=== PATIENT | female | born 1970 | race Caucasian/White ===

== ENCOUNTER 2017-09-10 22:00 | Emergency (ER) | payer BC ==
[~2017-09-10] VITALS: Ht 157.5 cm; Wt 143.2 kg
[~2017-09-10 22:00] MED LIST: ALEVE220 M1 PO; ALL DAY ALLERGY10 M1 PO; ALL DAY ALLG10 MG PO; AMITRIPTYLIN25 MG PO; AMOXICILLIN/CL500 MG PO; AMOXIL400 MG/52 PO; BACTRIM DS1 TAB PO; BISACODYL5 M1 PO; CEPHALEXIN500 MG PO; CIPROFLOXACN500 MG PO; CLONIDINE0.1 MG PO; CYCLOBENZAPR10 MG PO; CYMBALTA30 MG PO; CYMBALTA60 MG PO; DICLOFENAC PO; DICLOFENAC SODI75 M1 PO; DICLOFENAC75 MG PO; DIFFERIN0.1 %; DILAUDID 2MG2 MG/TA1 PO; DILAUDID4 MG PO; FIORICET PO; HYCOTUSS EXP1 ML OR; HYDROCHLORO25 MG/TAB PO; HYDROMORPHONE HC4 MG PO; IMITREX25 MG PO; KETOROLAC60 MG/2 ML IJ; KETOROLAC60 MG/2 ML IM; LISINOP/HCTZ1 TA2 PO; LISINOPRIL20 MG PO; MELOXICAM15 MG PO; MULTI VIT PO; NAPROSYN500 MG PO; NITROFURANTN100 MG PO; NORTREL PO; PHENERGAN SUP12.5 MG RE; PHENERGAN12.5 MG/TA PO; PROAIR HFA IN; PROZAC10 MG PO; PROZAC20 MG PO; ROPINIROLE0.5 MG PO; ROPINIROLE2 MG PO; TIZANIDINE4 MG PO; TOPAMAX25 MG PO; TOPAMAX50 M1 PO; TRAZODONE HCL100 MG PO; TRAZODONE50 MG PO; TRIAMCINOLON0.11 EX; ZANTAC 75 PO; ZPAK OR
[2017-09-11 00:07] LABS: HEMATOCRIT 40.4 % (37.0-47.0); HEMOGLOBIN 12.8 g/dl (12.0-16.0); IMMATURE GRANULOCYTES 0.3 % (0.0-1.0); MEAN CELL VOLUME 85.4 fL CALC (80.0-100.0); MEAN CORPUSCULAR HGB 27.1 pG CALC (26.0-32.0); MEAN CORPUSCULAR HGB CONC 31.7 g/L CALC (32.0-36.0); NEUT# 7.48 thou/uL (2.00-7.15); RED BLOOD COUNT 4.73 mill/uL (4.20-5.60); RED CELL DISTRI WIDTH 15.3 % (11.5-15.5)
[2017-09-11 00:34] LABS: ALBUMIN 4.5 g/dL (3.2-5.0); ALKALINE PHOSPHATASE 81 u/l (38-126); ANION GAP 21 (6-22 (CALC)); BILIRUBIN, TOTAL 0.3 mg/dL (0.0-1.4); BUN 13 mg/dL (7-17); BUN/CREATININE RATIO 22 (12-20 (CALC)); CARBON DIOXIDE 19 mmol/l (22-30); CHLORIDE 107 mmol/l (95-108); CREATININE 0.6 mg/dL (0.5-1.0); GFR > 60 ML/MIN (>=60 (CALC)); GFR FOR AFR.AMER. > 60 ML/MIN (>=60 (CALC)); POTASSIUM 4.8 mmol/l (3.5-5.1); SGOT/AST 19 u/l (14-36); SGPT/ALT 17 u/l (9-52); SODIUM 142 mmol/l (137-146); TOTAL PROTEIN 7.4 g/dL (6.3-8.2)
[2017-09-11 00:54] VITALS: BP 146/110
== END 2017-09-11 01:07 | disposition home or self-care (01) ==
LOC: ED 22:00
PROVIDERS: Emergency Medicine
DX: N94.6 Dysmenorrhea, unspecified (principal)

== ENCOUNTER 2019-01-13 06:13 | Day surgery (SDC) | payer BC ==
[2019-01-13] MEDS ORDERED: CARVEDILOL3.125 MG PO (06:50)
[2019-01-13] MEDS ORDERED: HYDROCHLOROT25 MG PO (06:50)
[2019-01-13] MEDS ORDERED: LOSARTAN POT25 MG PO (06:51)
[2019-01-13] MEDS ORDERED: GLIPIZIDE5 MG PO (06:52)
[2019-01-13] MEDS ORDERED: MEGESTROL AC20 MG PO (06:52)
[2019-01-13] MEDS ORDERED: ASPIRIN81 MG PO (06:53)
[2019-01-13] MEDS ORDERED: LIPITOR10 M1 PO (06:53)
[2019-01-13] MEDS ORDERED: OZEMPIC2 MG/1.5 M (06:54)
[2019-01-13 08:17] VITALS: BP 115/63
== END 2019-01-13 08:54 | disposition home or self-care (01) | DRG 552 ==
LOC: ORM 06:13
PROVIDERS: ATTEND Anesthesiology Pain Medicine
PROC: 3E0T3BZ Introduction of Anesthetic Agent into Peripheral Nerves and Plexi, Percutaneous Approach (ICD-10-PCS; principal; 2019-01-13)
PROC: 3E0T33Z Introduction of Anti-inflammatory into Peripheral Nerves and Plexi, Percutaneous Approach (ICD-10-PCS; 2019-01-13)
PROC: 3E0T3BZ Introduction of Anesthetic Agent into Peripheral Nerves and Plexi, Percutaneous Approach (ICD-10-PCS; 2019-01-13)
PROC: 3E0T33Z Introduction of Anti-inflammatory into Peripheral Nerves and Plexi, Percutaneous Approach (ICD-10-PCS; 2019-01-13)
PROC: 3E0T3BZ Introduction of Anesthetic Agent into Peripheral Nerves and Plexi, Percutaneous Approach (ICD-10-PCS; 2019-01-13)
PROC: 3E0T33Z Introduction of Anti-inflammatory into Peripheral Nerves and Plexi, Percutaneous Approach (ICD-10-PCS; 2019-01-13)
DX: M54.5 Low back pain (principal); M46.96 Unspecified inflammatory spondylopathy, lumbar region

== ENCOUNTER 2019-02-17 08:16 | Day surgery (SDC) | payer BC ==
[~2019-02-17] VITALS: Ht 157.5 cm; Wt 127.0 kg
[~2019-02-17 08:16] MED LIST changes: +ASPIRIN81 MG PO; +CARVEDILOL3.125 MG PO; +GLIPIZIDE5 MG PO; +HYDROCHLOROT25 MG PO; +LIPITOR10 M1 PO; +LOSARTAN POT25 MG PO; +MEGESTROL AC20 MG PO; +OZEMPIC2 MG/1.5 M
[2019-02-17 10:38] VITALS: BP 119/75
== END 2019-02-17 11:10 | disposition home or self-care (01) | DRG 552 ==
LOC: ORM 08:16
PROVIDERS: ATTEND Anesthesiology Pain Medicine
PROC: 015B3ZZ Destruction of Lumbar Nerve, Percutaneous Approach (ICD-10-PCS; principal; 2019-02-17)
DX: M54.5 Low back pain (principal)

== ENCOUNTER 2019-12-22 | Day surgery (SDC) | payer BC ==
[~2019-12-22] MED LIST changes: +MEDDOSEPAK PO; -OZEMPIC2 MG/1.5 M; +OZEMPIC2 MG/1.5 M SC; +SINGULAIR10 MG PO
[2020-01-04] MEDS ORDERED: MEDDOSEPAK PO (12:51)
== END 2019-12-22 10:22 | disposition home or self-care (01) | DRG 552 ==
DX: M54.5 Low back pain (principal); M46.1 Sacroiliitis, not elsewhere classified

== ENCOUNTER 2020-09-13 08:02 | Day surgery (SDC) | payer BC ==
[~2020-09-13 08:02] MED LIST changes: +JARDIANCE10 MG PO; +LEVOTHYROXIN75 MC1 PO
[2020-09-13] MEDS ORDERED: CRESTOR20 MG PO (08:59)
[2020-09-13] MEDS ORDERED: OXYBUTININ PO (09:00)
[2020-09-13 12:18] VITALS: BP 110/57
== END 2020-09-13 12:10 | disposition home or self-care (01) | DRG 552 ==
LOC: ORM 08:02
PROVIDERS: ATTEND Anesthesiology Pain Medicine
DX: M54.5 Low back pain (principal); M46.1 Sacroiliitis, not elsewhere classified; Z01.84 Encounter for antibody response examination

== ENCOUNTER 2021-04-12 12:38 | Inpatient (IN) | payer BC ==
[~2021-04-12] VITALS: Ht 157.5 cm; Wt 128.3 kg
[~2021-04-12 12:38] MED LIST changes: +CRESTOR20 MG PO; +DULOXETINE HCL30 MG PO; +OXYBUTYNIN CHLO10 MG PO
--- NOTE | 2021-04-12 12:44 | NUR ---
PATIENT SPO2 97% ON ROOM AIR RR 22. PATIENT AWARE OF BUSY ED AND IS AWAITING ROOM ASSIGNMENT.
--- NOTE | 2021-04-12 13:33 | NUR ---
PT AMBULATED TO RM 9 WITH STEADY GAIT.
[2021-04-12 15:15] LABS: HEMATOCRIT 38.9 % (37.0-47.0); HEMOGLOBIN 12.8 g/dl (12.0-16.0); IMMATURE GRANULOCYTES 0.2 % (0.0-5.0); MEAN CORPUSCULAR HGB 30.5 pG CALC (26.0-32.0); MEAN CORPUSCULAR HGB CONC 32.9 g/dL CAL (32.0-36.0); NEUT# 3.72 thou/uL (2.00-7.15); RED BLOOD COUNT 4.2 mill/uL (4.20-5.60)
[2021-04-12 15:34] LABS: ALBUMIN 3.9 g/dL (3.2-5.0); ALKALINE PHOSPHATASE 75 u/l (38-126); ANION GAP 17 (6-22 (CALC)); BILIRUBIN, TOTAL 0.3 mg/dL (0.0-1.4); BUN 13 mg/dL (7-17); BUN/CREATININE RATIO 17 (12-20 (CALC)); CARBON DIOXIDE 18 mmol/l (22-30); CHLORIDE 105 mmol/l (95-108); CREATININE 0.8 mg/dL (0.5-1.0); GFR > 60 ML/MIN (>=60 (CALC)); GFR FOR AFR.AMER. > 60 ML/MIN (>=60 (CALC)); SODIUM 137 mmol/l (137-146); TOTAL PROTEIN 6.9 g/dL (6.3-8.2)
[2021-04-12 15:35] LABS: MEAN CELL VOLUME 92.6 fL CALC (80.0-100.0)
--- NOTE | 2021-04-12 15:40 | NUR ---
Reassessment of patient completed. No distress noted.
[2021-04-12 15:41] LABS: SGOT/AST 79 u/l (14-36)
--- NOTE | 2021-04-12 17:00 | NUR ---
WALKING OXIMETRY TEST PERFORMED, PT AMBULATED IN PLACE WITH CANE AND ASSIST OF 1, O2 SATS DECREASED TO 75%. NOTIFIED
--- NOTE | 2021-04-12 22:02 | NUR ---
Reassessment of patient completed. No distress noted.
--- NOTE | 2021-04-13 00:15 | NUR ---
NOTED DECREASED SAO2 AND INCREASED RR. INCREASED O2 TO 6 LITERS.
--- NOTE | 2021-04-13 04:17 | NUR ---
RESTING QUIETLY. NAD.
--- NOTE | 2021-04-13 05:07 | NUR ---
SAO2 DROPS SIGNIFICANTLY WITH GETTING UP TO BSC.
--- NOTE | 2021-04-13 05:32 | NUR ---
RESTING COMFORTABLY. NAD.
[2021-04-13 06:57] LABS: HEMATOCRIT 39.1 % (37.0-47.0); HEMOGLOBIN 12.6 g/dl (12.0-16.0); IMMATURE GRANULOCYTES 0.3 % (0.0-5.0); MEAN CELL VOLUME 93.8 fL CALC (80.0-100.0); MEAN CORPUSCULAR HGB 30.2 pG CALC (26.0-32.0); MEAN CORPUSCULAR HGB CONC 32.2 g/dL CAL (32.0-36.0); NEUT# 2.85 thou/uL (2.00-7.15); RED BLOOD COUNT 4.17 mill/uL (4.20-5.60); RED CELL DISTRI WIDTH 13.9 % (11.5-15.5)
--- NOTE | 2021-04-13 07:15 | NUR ---
PT REQUESTING TO LEAVE AND GO HOME. ADMITTING PHYSICIAN NOTIFIED. ADVISED PT CAN SIGN OUT AMA. PAPERS SIGNED BY PT AND WILL AWAIT MOVE COORDINATOR.
[2021-04-13 07:18] LABS: ALBUMIN 3.7 g/dL (3.2-5.0); ALKALINE PHOSPHATASE 81 u/l (38-126); BILIRUBIN, TOTAL 0.3 mg/dL (0.0-1.4); BUN 15 mg/dL (7-17); BUN/CREATININE RATIO 24 (12-20 (CALC)); CHLORIDE 109 mmol/l (95-108); CREATININE 0.6 mg/dL (0.5-1.0); GFR > 60 ML/MIN (>=60 (CALC)); GFR FOR AFR.AMER. > 60 ML/MIN (>=60 (CALC)); POTASSIUM 4.8 mmol/l (3.5-5.1); SGOT/AST 77 u/l (14-36); SODIUM 137 mmol/l (137-146); TOTAL PROTEIN 6.3 g/dL (6.3-8.2)
[2021-04-13 07:19] LABS: ANION GAP 21 (6-22 (CALC)); CARBON DIOXIDE 12 mmol/l (22-30)
[2021-04-13 07:29] LABS: C-REACTIVE PROTEIN 23.4 mg/dL (0-0.9)
--- NOTE | 2021-04-13 08:15 | NUR ---
BREAKFAST TRAY GIVEN. STILL AWAITING RIDE
--- NOTE | 2021-04-13 08:23 | NUR ---
UP TO CHAIR FOR BREAKFAST CHANGED. LINENS CHANGED AND BATH SUPPLIES GIVEN.
--- NOTE | 2021-04-13 08:56 | NUR ---
BATH SUPPLIES GIVEN. PT UP TO CHAIR.
--- NOTE | 2021-04-13 09:48 | NUR ---
IV ACCESS NOT WORKING. AMANDEEP MCDANIEL IN TO TRY TO OBTAIN ACCESS
--- NOTE | 2021-04-13 15:15 | NUR ---
REPORT FROM ZAHRAA HUGHES. PATIENT RESTING IN STRETCHER IN NAD AND DENIES ANY NEEDS. SPO2 95% ON 5L NC. PATIENT DENIES ANY NEEDS CALL GARY WITHIN REACH.
--- NOTE | 2021-04-13 16:27 | NUR ---
ATTEMPTED TO CALL REPORT ROOM IS NOT CLEAN AT THIS TIME.
--- NOTE | 2021-04-13 17:30 | NUR ---
PATIENT ERSTING IN STRETCHER SPO2 93% ON 5L NC AT THIS TIME. PATIENT AWARE OF PENDING ADMISSION. ATTEMPTING TO CALL REPORT. ROOM IS NOT CLEAN AND THEY ARE NOT SURE WHO THE NURSE WILL BE.
--- NOTE | 2021-04-13 19:00 | NUR ---
PATIENT REPORT TO ZAHRAA GRANT.
--- NOTE | 2021-04-13 19:42 | NUR ---
Admission Note Report Given to: ZAHRAA TIWARI Transported by: Wheelchair X Stretcher Transported with: X Nurse Transporter X Patent IV X O2 X Ell Teacher Location: ICU X MS2
--- NOTE | 2021-04-13 19:50 | NUR ---
TO FLOOR BY STRETCHER
--- NOTE | 2021-04-13 19:55 | NUR ---
PT ARRIVED TO MED SURG UNIT VIA STRETCHER ACCOMPANIED BY ED NURSE. PT SOB UPON EXERTION. ASSISTED PT TO THE BED WITH OXYGEN ON 5LNC. V/S ASSESSED AT THIS TIME AND PT ORIENTED TO ROOM, CALL SYSTEM, BED. LIGHTS.
[2021-04-13 19:57] VITALS: BP 125/66
--- NOTE | 2021-04-13 20:15 | NUR ---
PT OXYGEN SAT LEVELS 87% ON 5L. OXYGEN INCREASED TO 7LNC, O2 SAT 89% SUSTAINED. EDUCATED PT REGARDING PRONING AND I.S. PT STATED THAT IT IS HARD FOR HER TO PRONE. POC AND EDUCATION PROVIDED REGARDING DIAGNOSIS. I ENCOURAGED HER TO PRONE, AT FIRST SHE WAS HESITANT, BUT I WAS ABLE TO ENCOURAGE HER INTO PRONING. OXYGEN LEVELS IMMEDIATELY IMPROVIDED UPON PRONING. O2 SATS SUSTAINED ON 6LNC @91% WILL CONTINUE TO MONITOR
--- NOTE | 2021-04-13 21:45 | NUR ---
PT STILL PRONING, NO S/O DISTRESS NOTED.
--- NOTE | 2021-04-13 22:18 | NUR ---
PT MEDICATED ORDERS PROVIDED AND PT. PT MEDICATED ORDERS PROVIDE. UPON ENTERING THE ROOM SHE WAS SITTING UPRIGHT IN THE BED ATTEMPTING TO USE I-PAD. O2 SAT ASSESSED TO BE 84% ON 7LNC. I ADVISED THE PT THAT SHE REALLY NEEDED TO LAY IN PRONE POSITION WHILE AWAITING RESP TO PLACE HER ON HIGH FLOW OXYGEN. SHE WAS VERY RELUCTANT, BUT EVENTIALLY AGREED TO TURN PRONE. O2 SAT UP TO 89% WHILE PRONE. CALLED RESP
--- NOTE | 2021-04-13 22:45 | NUR ---
PT ASKED TO HAVE PHARMACY CONFIRM THAT HER COUGH MEDICATION DOES NOT CONTAIN CODIENE. PHARMACY NOTIFIED AND THEY CONFIRMED MEDICATION SAFE PER ALLERGIES.
[2021-04-13 23:30] VITALS: BP 113/54
[2021-04-14] VITALS (12 sets, daily range): BP systolic 107–143; BP diastolic 49–65
--- NOTE | 2021-04-14 01:48 | NUR ---
PT PRONING, NO S/O DISTRESS. LIGHTS TURNED LOW AND SHE APPEARED TO BE SLEEPING. O2 SAT ASSESSED TO BE 94% ON 9LNC HIGH FLOW.
--- NOTE | 2021-04-14 04:18 | NUR ---
PT UP TO BSC, O2 SAT 84% AND PT SOB UPON EXERTION. ASSISTED DIAPK-CARE AND BACK TO THE BED WHERE SHE CONTINUES TO LAY IN PRONE POSITION. PERSONAL HEALTH COACH PLACED TO HER BACK. BLOOD DRAWN FROM PICC AND FLUSHED WITH 20CC OF NS. BLOOD DRAWN SENT TO LAB. PT OXYGEN SAT BACK UP TO 92% ON 10LNC HIGH FLOW SUSTAINING.
[2021-04-14 05:37] LABS: HEMOGLOBIN 12.8 g/dl (12.0-16.0); IMMATURE GRANULOCYTES 0.3 % (0.0-5.0); MEAN CELL VOLUME 92.4 fL CALC (80.0-100.0); MEAN CORPUSCULAR HGB 29.6 pG CALC (26.0-32.0); NEUT# 2.69 thou/uL (2.00-7.15); RED BLOOD COUNT 4.33 mill/uL (4.20-5.60); RED CELL DISTRI WIDTH 14.1 % (11.5-15.5)
[2021-04-14 06:18] LABS: ALBUMIN 3.7 g/dL (3.2-5.0); ALKALINE PHOSPHATASE 84 u/l (38-126); ANION GAP 23 (6-22 (CALC)); BILIRUBIN, TOTAL 0.2 mg/dL (0.0-1.4); BUN 20 mg/dL (7-17); BUN/CREATININE RATIO 32 (12-20 (CALC)); CARBON DIOXIDE 14 mmol/l (22-30); CHLORIDE 109 mmol/l (95-108); CREATININE 0.6 mg/dL (0.5-1.0); GFR > 60 ML/MIN (>=60 (CALC)); GFR FOR AFR.AMER. > 60 ML/MIN (>=60 (CALC)); MAGNESIUM 1.7 mg/dL (1.6-2.3); SGOT/AST 68 u/l (14-36); SODIUM 141 mmol/l (137-146); TOTAL PROTEIN 6.3 g/dL (6.3-8.2)
--- NOTE | 2021-04-14 09:18 | NUR ---
0844 ASSESSMENT DONE. PATIENT IS ALERT AND ORIENT X3. PATIENT STATED SHE IS TIRED AND SLEEPY. TELE IN PLACE. 02 AT 9L HIGH FLOW AND O2 READING 84% INCREASE O2 12L HIGH FLOW READING 89-90%. JUICE PROVIDED. PATIENT DENIES PAIN. PATIENT STATED WHEN SHE MOVES AND COUGHS SHE HAS SOB AT TIMES. 0915 ASSISTED PATIENT TO [place] [facility] [place] 12L HIGH FLOW AND READING 89-90% 0918 ASSISTED PATIENT BACK TO BED AND 02 READING 79% AND INCREASE O2 TO 15L HIGH FLOW. ASSISTED PATIENT TO LAY IN BED PRONE POSITION. 02 READING 90%. SAFETY PRECAUTIONS REINFORCED AND CALL LIGHT IN REACH. NOTIFIED DARON HARDY ABOUT PATIENT O2.
--- NOTE | 2021-04-14 11:31 | NUR ---
PATIENT WAS TALKING IN HER CELL PHONE AND 02 READING 80'S. O2 AT 15L HIGH FLOW. PATIENT WENT BACK TO PRONES POSITION AND O2 READING 90%. PHUONG DENIES NEEDS AT THIS TIME. CALL LIGHT IN REACH.
--- NOTE | 2021-04-14 16:30 | NUR ---
PATIENT IS HALF PRONE POSITION IN BED. 02 IS 15L HIGH FLOW AND PATIENT IS READING 86-87%. TELE IN PLACE. PATIENT DENIES SOB. CALL DR. ULLOA ORDER RECEIVED.
--- NOTE | 2021-04-14 18:34 | NUR ---
REPORT GIVEN TO ZAHRAA PAREDES. TRANSFER PATIENT VIA BED TO ROOM ONE WITH O2 IN PLACE. CALLED PATIENT FOR AN UDPATE BUT HE DOES NOT ANSWER THE PHONE.
--- NOTE | 2021-04-14 19:25 | NUR ---
[id number]- PATIENT LAYS ON HER LEFT SIDE, SPO2 READS 87%-89%. PATIENT DOES BECOME SOB/SHALLOW BREATHING WHEN EXERTED OR TALKING. SHE IS ALERT AND ORIENTED X4. JOSSY DOUBLE LUMEN PICC INACT, FLUSHES AND RETURNS BLOOD, NS INFUSING AT KVO. NO EDEMA NOTED. SKIN INTACT/DRY/WARM/ DOES HAVE DRY/FLAKY SKIN ON BACK OF HEAD. IS OBESE. IS ABLE TO PRONE WHEN ASKED. WAS PLACED ON VAPOTHERM AND TITRATED TO 40 L, FIO2 100%. DOES TAKE TIME TO RECOVER AFTER REPOSITIONING HERSELF, SPO2 88%. PATIENT DRINKS SIPS OF HER SMART WATER BOTTLES. SR ON TELEMETRY, BP 120'S SYSTOLIC. DOES HAVE A NONPRODUCTIVE COUGH. REPORTS FEELINGS NAUSEAS, ZOFRAN PROVIDED.
--- NOTE | 2021-04-14 19:45 | NUR ---
PATIENT WAS PLACED ON PRONE POSITION MUCH SHE COULD TOLERATE, WAS PLACED ON VAPOTHERM 40 L, 100%, O2 SATS 88%-89%.PATIENT BECOMES SOB WITH EXERTION, DESATS TO 70'S. REPORTS SHE FEELS "PRESSURE" IN HER NOSE FROM THE VAPOTHERM O2, PATIENT WAS EXPLAINED ABOUT THE VAPOTHERM AND THE O2 FLOW. WILL CONTINUE TO MONITOR.
--- NOTE | 2021-04-14 19:53 | NUR ---
CALLED AND SPOKE TO DESHAUN KINGSTON, PATIENT'S TO NOTIFY PATIENT HAS BEEN TRANSFERRED TO ICU. UPDATED HIM. LET HIM KNOW IF HE WANTS TO REACH HER, IT IS BETTER BY TEXTING BECAUSE SHE DESATS/SOB WHEN TALKING. UNDERSTANDS.
--- NOTE | 2021-04-14 21:10 | NUR ---
PLACED A HENDERSON CATHETER 16 BULGARIAN DUE TO PATIENT BECOMES SEVERELY SOB AND DESATS TO 70'S WITH EXERTION. PATIENT TOLERATED WELL. PLACED HER BACK IN PRONE POSITION WITH PLENTY OF VERBAL CUEING. SPO2 NOW 94%. PATIENT DOES BECOME NASUEAS WITH MOVEMENT/SOB. ZOFRAN WAS GIVEN AT BEGINNNING OF SHIFT. CALL LIGHT WITHIN REACH.
[2021-04-15] VITALS (17 sets, daily range): BP systolic 105–147; BP diastolic 50–78
--- NOTE | 2021-04-15 01:06 | NUR ---
PATIENT LAYS ON HER LEFT SIDE, LEANS HER BACK ON THE BED RAIL. RESTS WITH EYES CLOSED. SPO2 90%. CALL LIGHT WITHIN REACH.
--- NOTE | 2021-04-15 02:48 | NUR ---
PATIENT INSTRUCTOR ADJUNCT PHARMACY TECHNICIAN LIGHT, REPORTS SHE IS HOT AND "CAN'T BREATHE." PATIENT WAS LAYING TOWARDS HER BACK MORE THAN ON HER SIDE OR PRONE. ASSISTED WITH REPOSITIONING PRONE MUCH SHE CAN. PLACED PILLOW BY HER BACK TO HELP MAINTAIN PRONE. DRANK SIPS OF WATER. SPO2 90% NOW. HAD PROVIDED FAN, DID NOT TURN ON DUE TO PATIENT BECAME COLD. PATIENT BECOMES NAUSEAS WHEN REPOSITIONING, DRY HEAVES. CALL LIGHT WITHIN REACH.
--- NOTE | 2021-04-15 04:00 | NUR ---
patent lays on her left side, rests with eyes closed. spo2 88%-90% on vapotherm fio2 100%, 40 liters, resp rate 26. call light within reach.
--- NOTE | 2021-04-15 04:41 | NUR ---
BLOOD DRAWN FROM JOSSY DOUBLE LUMEN PICC. PATIENT ASSISTED TO LAY PRONE AGAIN. SPO2 91% NOW.
[2021-04-15 04:47] LABS: BASO% 0 % (0-3); EOS% 0 % (0-8); HEMATOCRIT 37.8 % (37.0-47.0); HEMOGLOBIN 12.4 g/dl (12.0-16.0); IMMATURE GRANULOCYTES 0.3 % (0.0-5.0); LYMPH% 23 % (15-41); MEAN CELL VOLUME 90.4 fL CALC (80.0-100.0); MEAN CORPUSCULAR HGB 29.7 pG CALC (26.0-32.0); MEAN CORPUSCULAR HGB CONC 32.8 g/dL CAL (32.0-36.0); MONO% 11 % (2-13); NEUT# 2.33 thou/uL (2.00-7.15); NEUT% 66 % (42-76); PLATELET COUNT 146 thou/uL (130-400); RED BLOOD COUNT 4.18 mill/uL (4.20-5.60); RED CELL DISTRI WIDTH 13.6 % (11.5-15.5)
[2021-04-15 05:02] LABS: ALBUMIN 3.2 g/dL (3.2-5.0); ALKALINE PHOSPHATASE 73 u/l (38-126); BILIRUBIN, TOTAL 0.2 mg/dL (0.0-1.4); BUN 22 mg/dL (7-17); BUN/CREATININE RATIO 42 (12-20 (CALC)); C-REACTIVE PROTEIN 4.4 mg/dL (0-0.9); CHLORIDE 108 mmol/l (95-108); CREATININE 0.5 mg/dL (0.5-1.0); GFR > 60 ML/MIN (>=60 (CALC)); GFR FOR AFR.AMER. > 60 ML/MIN (>=60 (CALC)); POTASSIUM 4.3 mmol/l (3.5-5.1); SGOT/AST 49 u/l (14-36); SODIUM 137 mmol/l (137-146); TOTAL PROTEIN 5.7 g/dL (6.3-8.2)
[2021-04-15 05:09] LABS: ANION GAP 15 (6-22 (CALC)); CARBON DIOXIDE 18 mmol/l (22-30)
--- NOTE | 2021-04-15 05:53 | NUR ---
PATIENT VALIDATION INTERN LIGHT, REPORTS SHE CAN'T BREATHE. WENT INTO THE ROOM AND SHE WAS GETTING UP FROM BIANKA ELYING/PRONE POSITION. SHE COMPLAINED OF PAIN TO HER LEFT SIDE FROM LYING ON IT. ASSISTED CHANGING TO HER R-SIDE/PRONE. DESATS TO 70'S. INSTRUCTED PURSED LIP BREATHING. PROVIDED ZOFRAN FOR NAUSEA. TLERATES SYNTHROID MEDIACTION.
--- NOTE | 2021-04-15 07:56 | NUR ---
PATIENT IS A/O X3, ABLE TO MAKE NEEDS KNOWN TO STAFF. STATES SHE IS HAVING SOME SORENESS ON HER LEFT ELBOW, STTAED SHE HAS A BEDSORE. WHEN ASSESSED, ITS A SLIGHTLY RED ELBOW, BLANCHABLE, INTACT. STATED "ITS LIKE A 3 OUT OF 10". PERRLA 3MM BRISK. USING VAPO AT MAXED 40L 100%. SATS 88-90%. CLEAR TO DIMINISHED LUNG SOUNDS. ACTIVE BOWEL SOUNDS. OBESE, SOFT AND NON TENDER ABDOMEN. STRONG EQUAL HAND SAP TECHNICAL ARCHITECT. STRONG PULSES. EDEMA IS IN BLE 1+. CURRENTLY LAYING ON HER SIDE. SAFETY MEASURES IN PLACE. CALL LIGHT IN REACH. WILL CONTINUE TO MONITOR.
--- NOTE | 2021-04-15 10:00 | NUR ---
PATIENT IS LAYING IN BED, REFUSES TO USE I.S, STATES SHE GETS COUGHING AND SPITTING THINGS UP. WOULDN'T TRY FOR ME WHEN ASKED AND WHEN DOCTOR TOLD HER TO TRY IT SHE STARTED TO COUGH AND IGNORE WHAT HE WAS SAYING EARLIER TODAY. WHEN I TOLD HER AGAIN TO TRY IT SHE STARTED TO HAVE A COUGHING SESSION. DRY NON PRODUCTIVE COUGH.
--- NOTE | 2021-04-15 12:34 | NUR ---
PATIENT REFUSED LUNCH, STATED SHE WANTED SOUP. THREW OLD SOUP, UNTOUCHED, FROM THIS MORNING AWAY. NEW SOUP IS ON HER BEDSIDE.
--- NOTE | 2021-04-15 13:11 | NUR ---
SPOEK TO PATIENT'S . CODE GIVEN. UPDATED GIVEN TO HIM.
--- NOTE | 2021-04-15 14:00 | NUR ---
PATIENT REQUESTING HELP WITH CORDS, UNTANGLED CORDS. SAFETY MEASURES IN PLACE. CALL LIGHT IN REACH. WILL CONTINUE TO MONITOR.
--- NOTE | 2021-04-15 16:00 | NUR ---
REQUESTED PAIN MEDICATION, RECIEVED ORDERS FROM DOCTOR.
--- NOTE | 2021-04-15 18:00 | NUR ---
PATIENT STATED THAT PAIN MEDICATION WORKED FOR ABOUT AN HOUR, WANTS MORE, STATED SHE CANT HAVE ANYMORE FOR A FEW HOURS PER DOCTORS ORDERS. GAVE HER TWO MORE ICE PACKS. INFROMED HER TO USE HER PHONE A DISTRACTION BECAUSE I DO NOT WANT HER BECOMING DEPRESSED. EDUCATION WAS PROVIDED ON MENTAL HEALTH AND ITS IMPORTANCE. STATED SHE UNDERSTOOD.
--- NOTE | 2021-04-15 18:44 | NUR ---
CALLED HER SON BACK, UPDATE WAS GIVEN.
--- NOTE | 2021-04-15 19:56 | NUR ---
PATIENT IS AWAKE, ORIENTED X4. LAYS ON HER RIGHT SIDE LEANING TOWARDS THE BED RAIL, SPO2 IN THE 80'S. ON VAPOTHERM 40 LITERS, FIO2 100%. DISCUSSED WITH PATIENT IMPORTANCE OF SPO2 AND O2 SUPPORT, PATIENT ABLE TO TURN INTO PRONE POSITION MUCH SHE CAN, SPO2 NOW 91%-93%, RESP RATE 29/SHALLOW. NURSE ASSESSMENT PERFORMED. SKIN INTACT/DRY/WARM. NO EDEMA NOTED. JOSSY JAYA LUMEN PICC INTCAT/FLSUHES PROPERLY/RETURNS BLOOD, NS INFUSING AT KVO. BECOMES NAUSEAS/DRY HEAVES WITH MOVEMENT. DOES NOT VOMIT ONLY SPITS UP SCANT PHLEGM/CLEAR/THICK. DISCUSSED WIT PATIENT IMPORTANCE OF COMPLIANCE AND PUTTING HER EFFORT TO GET BETTER, PATIENT UNDERSTANDS AND AGREES, IS COOPERATIVE. PLACED ICE PACKS BACK ON HER R-SHOULDER, ALSO TURNED FAN ON FOR C/O FEELING HOT. BLOOD SUGAR OBTAINED, EXPLAINED SLIDING SCALE. EXPLAINE PAIN MEDIACTION FREQUENCY. CALL LIGHT WITHIN REACH.
--- NOTE | 2021-04-15 20:52 | NUR ---
PATIENT'S CALLED HERE FOR UPDATES. UPDATES PROVIDED.
--- NOTE | 2021-04-15 21:25 | NUR ---
PATIENT ABLE TO TOLERATE LOVENOX/INSULIN INJECTIONS. XANAX PROVIDED. TAKES SIPS OF WATER. ZOFRAN PROVIDED FOR INTERMITTENT NAUSEA. COMPLAINE DOF "ROBINA UNDER LEFT SIDE. SHEETS WERE STRAIGHTENED OUT. NO OTHER COMPLAINTS. CALL LIGHT WITHIN REACH. SPO2 90%.
--- NOTE | 2021-04-15 21:38 | NUR ---
PATIENT COMPLAINS OF PAIN ON LEFT SIDE BY RIB CAGE, REPORT SHE THINKS IT IS THE SHEETS. SHEETS WERE STRAIGHTENED OUT. PATIENT REPOSITIONS TO HER LEFT SIDE, HOB ELEVATED SLIGHTLY. SPO2 86%. WILL CONTINUE TO MONITOR.
--- NOTE | 2021-04-15 23:00 | NUR ---
WENT IN ROOM DUE TO PATIENT O2 SATS 86%, LYING ON HER BACK WITH HOB 30 DEGREES. PATIENT REPOSITIONED HERSELF TO PRONE AFTER EXPLAINING SPO2 LOW AND CURRENT POSITION IS NOT HELPING HER WITH HER OXYGEN SATURATION. SPO2 RISED TO 92%. PROVIDED ICED BAGS FOR HER RIGHT SHOULDER AND BACK. CALL LIGHT WITHIN REACH.
[2021-04-16] VITALS (52 sets, daily range): BP systolic 81–163; BP diastolic 44–83
--- NOTE | 2021-04-16 00:24 | NUR ---
PATIENT WIND FARM SUPPORT SPECIALIST LIGHT, REPORTS SHE IS HAVING CHEST PAIN, POINTS UNDER HER LEFT BREAST. STAT EKG WAS TAKEN. BLOOD DRAWN FROM [facility] PICC FOR STAT TROPONIN. PATIENT LAYED IN SEMI ADAM'S POSITION FOR EKG. THAN WAS ABLE TO LAY BACK IN PRONE SINCE SPO2 WAS HIGH 0'S TO LOW 80'S. SOON LAYED PRONE, SPO2 RISED UP TO 91%-93%. PATIENT REPORTED CHEST PAIN WAS 7 AT THE BEGINNING THAN 5, THAN 4 1/2. TORADOL IV WAS PROVIDED. ICE PACKS PLACE BETWEEN HER BREAS ON OTHER ON HER BACK PER PATIENT REQUEST. WILL CONTINUE TO MONITOR.
--- NOTE | 2021-04-16 00:44 | NUR ---
FAXED PRIOR EKG AND EKG TAKEN NOW FOR DR AGUILAR, ER DOCTOR. PER DR AGUILAR NO CHANGES NOTED. AWAITING STAT TROPONIN DRAWN.
--- NOTE | 2021-04-16 01:25 | NUR ---
TROPONOIN LAB VALUE IS WNL. PATIENT CONTINUES TO LAY PRONE, SPO2 97%. RESTS WITH EYES CLOSED. WILL CONTINUE TO MONITOR.
--- NOTE | 2021-04-16 02:00 | NUR ---
PATIENT AWAKENS EASILY WHEN SPOKEN TO. MAINTAINS PRONE/SIDE LYING POSITION, SPO2 91%-93%. NO COMPLAINTS. CALL LIGHT WITHIN REACH.
--- NOTE | 2021-04-16 04:50 | NUR ---
PATIENT COMPLAINS OF GOWN IS LARGE ON HER AND CRUMPLES UP UNDER HER LEFT SIDE RIB CAGE, IS UNCOMFORTABLE. OFFERED BED BATHE, ACCEPTS. WAS ABLE TO REPOSITION, WASH HER FACE. DID DESAT TO 70'S. ABLE TO SWALLOW HER SYNTHROID WITH WATER. DOES HAVE A COUGH, SPITS UP SCANT PHLEGM.
[2021-04-16 05:45] LABS: HEMOGLOBIN 13.6 g/dl (12.0-16.0); IMMATURE GRANULOCYTES 0.9 % (0.0-5.0); MEAN CELL VOLUME 88.1 fL CALC (80.0-100.0); NEUT# 3.06 thou/uL (2.00-7.15); RED BLOOD COUNT 4.54 mill/uL (4.20-5.60); RED CELL DISTRI WIDTH 13.3 % (11.5-15.5)
[2021-04-16 06:06] LABS: ALBUMIN 3.2 g/dL (3.2-5.0); ALKALINE PHOSPHATASE 75 u/l (38-126); ANION GAP 16 (6-22 (CALC)); BUN 24 mg/dL (7-17); BUN/CREATININE RATIO 43 (12-20 (CALC)); C-REACTIVE PROTEIN 2.4 mg/dL (0-0.9); CARBON DIOXIDE 20 mmol/l (22-30); CHLORIDE 105 mmol/l (95-108); CREATININE 0.6 mg/dL (0.5-1.0); GFR > 60 ML/MIN (>=60 (CALC)); GFR FOR AFR.AMER. > 60 ML/MIN (>=60 (CALC)); POTASSIUM 4.1 mmol/l (3.5-5.1); SGOT/AST 37 u/l (14-36); SODIUM 136 mmol/l (137-146); TOTAL PROTEIN 5.9 g/dL (6.3-8.2)
[2021-04-16 06:09] LABS: BILIRUBIN, TOTAL 0.3 mg/dL (0.0-1.4)
--- NOTE | 2021-04-16 06:15 | NUR ---
PATIENT EXTERMINATION SUPERVISOR LIGHT, COMPLAINS OF FEELING SORE ON HER LEFT SIDE RIB CAGE, REQUESTS TO HAVE ME CHECK IF SHE HAS A BED SORE, I ASSURED PATIENT SHE IBARRA SNOT HAVE A BED SORE, WHEN I WASHED HER UP I DID NOT NOTE ANY REDNESS. COMPLAINS OF LEFT ELBO FEELING SORE FROM BED, DID NOTE SMALL RED AREA, PLACED A FOAM PAD WITH TAPE.
--- NOTE | 2021-04-16 06:45 | NUR ---
REPORT RECEIVED FROM HOUSEHOLD COOK RN. CARE ASSUMED.
--- NOTE | 2021-04-16 07:00 | NUR ---
PATIENT RESTING IN BED AWAKE. PATIENT IS ALERT AND ORIENTED X3. SHIFT ASSESSMENT COMPLETED AT THIS TIME. IV PATENT X1. PATIENT O2 SATS 75-83%. PATIENT VERY ANXIOUS AND CRYING. REASSURANCE PROVIDED. DISCUSSED WITH PATIENT THAT ID SATS CONTINUE TO WORSEN SHE MAY NEED TO BE PLACED ON BIPAP AND THEN A VENTILATOR IS THE NEXT STEP. ENCOURAGED PATIENT TO TRY TO SLOW BREATHING DOWN AND BREATH THROUGH NOSE AND OUT MOUTH. CALL LIGHT IN REACH.W ILL CONTINUE TOMONITOR.
--- NOTE | 2021-04-16 08:00 | NUR ---
PATIENT ATTENDING PATHOLOGIST LIGHT STATING HELP I CAN'T BREATHE. PATIENT VERY ANXIOUS AND TEARFUL. REASSURANCE PROVIDED. MEDICATED PER MAR. PATIENT REFUSING BREAKFAST. RT AT BEDSIDE. NRB PLACED ON PATIENT WITH VAPOTHERM STILL IN PLACE. WILL CONTINUE TO MONITOR.
--- NOTE | 2021-04-16 09:00 | NUR ---
DR ULLOA AT BEDSIDE AT THIS TIME.
--- NOTE | 2021-04-16 10:06 | NUR ---
PATIENT CHECKER CASHIER LIGHT STATING THAT SHE NEEDS HELP MOVING. PATIENT ASSISTED IN REPOSITIONING. CALL LIGHT IN REACH. WILL CONTINUE TO MONITOR.
--- NOTE | 2021-04-16 12:00 | NUR ---
PHONED FOR UPDATE. UPDATE PROVIDED. EXPLAINED TO THAT PATIENT OXYGEN DEMAND HAD INCREASED AND SHE WAS ON A NRB WELL VAPOTHERM AND NEXT WAS BIPAP AND THEN A VENTILATOR. STATES THAT HE WILL ENCOURAGE THE TO LEAVE OXYGEN ON.
--- NOTE | 2021-04-16 12:20 | NUR ---
DR ULLOA AT BEDSIDE AT THIS TIME.
--- NOTE | 2021-04-16 14:00 | NUR ---
PATIENT SOLE STAPLER WELT LIGHT STATING THAT SHE IS TIRED AND IS SHORT OF BREATH. DR ULLOA TO BEDSIDE TO TALK WITH PATIENT. ORDER RECEIVED TO INTUBATE PATIENT AT THIS TIME.PATIENT STATES THAT SHE CANNOT TAKE IT ANYMORE.
--- NOTE | 2021-04-16 15:00 | NUR ---
AIRCRAFT ENGINE MECHANIC SUPERVISOR AT [facility] FOR INTUBATION. AIRCRAFT ENGINE MECHANIC SUPERVISOR GAVE MEDS AND INTUBATE PATIENT. PATIENT PLACED ON PROPOFOL DRIP PER PROTOCOL AND LEVOPHED DRIP. OG PLACED. RADIOLOGY AT BEDSIDE FOR PORTABLE CXR. DR ULLOA AT BEDSIDE TO EVALUTE PATIENT WELL. FANTANYL ORDERED AND GIVEN. VERSED GTT STARTED. WILL CONTINUE TO MONITOR.
--- NOTE | 2021-04-16 16:04 | NUR ---
O2 SAT 84%. PEEP INCREASED TO 14.
--- NOTE | 2021-04-16 16:22 | NUR ---
UPDATED ON INTUBATION STATUS.
--- NOTE | 2021-04-16 16:58 | NUR ---
O2 SAT 75%. INCREASED PEEP TO 15 AND RR TO 30.
--- NOTE | 2021-04-16 17:40 | NUR ---
EKG CHANGES NOTED ON MONITOR. EKG ORDERED AND OBTAINED. LABS OBTAINED.
--- NOTE | 2021-04-16 18:40 | NUR ---
HAYLEY VOGEL NOTIFIED OF EKG CHANGES.
[2021-04-16 18:55] LABS: ALBUMIN 3.6 g/dL (3.2-5.0); BUN 25 mg/dL (7-17); CHLORIDE 100 mmol/l (95-108); CREATININE 0.6 mg/dL (0.5-1.0); GFR > 60 ML/MIN (>=60 (CALC)); GFR FOR AFR.AMER. > 60 ML/MIN (>=60 (CALC)); POTASSIUM 4.8 mmol/l (3.5-5.1); SODIUM 133 mmol/l (137-146)
[2021-04-16 19:05] LABS: CARBON DIOXIDE 15 mmol/l (22-30)
--- NOTE | 2021-04-16 19:10 | NUR ---
REPORT GIVEN BY ISRAEL. PATIENT INTABATED AND SEDATED. OJ LIS. HENDERSON DRAINING TO GRAVITY CLEAR YELLOW URINE. FALL AND SAFTEY PRECAUTIONS. BILATERAL WIRST RESTRIANTS PRESENT. JOSSY PICC INFUSING DIPRIVAN, VERSED, KVO FLUIDS.
--- NOTE | 2021-04-16 20:00 | NUR ---
RT AT BEDSIDE, ADJUSTED PEEP SETTING ON VENT
--- NOTE | 2021-04-16 20:15 | NUR ---
LEVOPHED TITRATED 14 MCG/MIN TO 10 MCG/MIN FOR BP 152/59
--- NOTE | 2021-04-16 20:18 | NUR ---
UPDATED ON PATIENT
--- NOTE | 2021-04-16 21:05 | NUR ---
UNABLE TO GIVEN AZITHROMYCIN DUE TO IV COMPATIBILITY AND LIMITED SITES.
--- NOTE | 2021-04-16 23:20 | NUR ---
ORDERS GIVEN BY PHARMACIST THEA TO MIX VERSED 10MG/NS 0.9 100 ML BAG DUE TO VERSED 50 MG/NS 0.9% 500 ML BAG BEING NOT AVAILABLE. PHARMACIST ON THE WAY TO MIX NEW MEDICATION BAGS.
[2021-04-17] VITALS (23 sets, daily range): BP systolic 100–155; BP diastolic 50–74
--- NOTE | 2021-04-17 00:39 | NUR ---
RT AT BEDSIDE, DECREASING PEEP
--- NOTE | 2021-04-17 02:00 | NUR ---
PATIENT INTABATED AND SEDATED. RT AT BEDSIDE ASSESSING PATIENT.
--- NOTE | 2021-04-17 04:45 | NUR ---
X-RAY TECH AT [facility] FOR MORNING CHEST X-RAY. MORNING LABS OBTAINED AT THIS TIME
--- NOTE | 2021-04-17 05:30 | NUR ---
RT AT BEDSIDE DRAWING ABG'S
[2021-04-17 06:01] LABS: ALBUMIN 3.3 g/dL (3.2-5.0); ALKALINE PHOSPHATASE 80 u/l (38-126); ANION GAP 21 (6-22 (CALC)); BILIRUBIN, TOTAL 0.4 mg/dL (0.0-1.4); BUN 20 mg/dL (7-17); BUN/CREATININE RATIO 27 (12-20 (CALC)); C-REACTIVE PROTEIN 3.2 mg/dL (0-0.9); CARBON DIOXIDE 15 mmol/l (22-30); CHLORIDE 105 mmol/l (95-108); CREATININE 0.7 mg/dL (0.5-1.0); GFR > 60 ML/MIN (>=60 (CALC)); GFR FOR AFR.AMER. > 60 ML/MIN (>=60 (CALC)); POTASSIUM 4.6 mmol/l (3.5-5.1); SGOT/AST 25 u/l (14-36); SODIUM 137 mmol/l (137-146)
[2021-04-17 06:06] LABS: HEMATOCRIT 46.5 % (37.0-47.0); HEMOGLOBIN 15.3 g/dl (12.0-16.0); MEAN CELL VOLUME 90.3 fL CALC (80.0-100.0); MEAN CORPUSCULAR HGB 29.7 pG CALC (26.0-32.0); MEAN CORPUSCULAR HGB CONC 32.9 g/dL CAL (32.0-36.0); RED BLOOD COUNT 5.15 mill/uL (4.20-5.60); RED CELL DISTRI WIDTH 13.5 % (11.5-15.5)
--- NOTE | 2021-04-17 06:45 | NUR ---
REPORT RECEIVED FROM LAUREN VITAL. CARE ASSUMED.
--- NOTE | 2021-04-17 07:15 | NUR ---
PATIENT RESTING IN BED INTUBATED AND SEDATED. SHIFT ASSESSMENT COMPLETED AT THIS TIME. IV PATENT X1. VSS ON MONITOR. PATIENT REPOSITIONED IN BED. WILL CONTINUE TO MONITOR.
--- NOTE | 2021-04-17 08:45 | NUR ---
DR ULLOA AT BEDSIDE AT THIS TIME.
--- NOTE | 2021-04-17 10:00 | NUR ---
PATIENT RESTING IN BED INTUBATED AND SEDATED AT THIS TIME. VSS ON MONITOR. NO DISTRESS NOTED. WILL CONTINUE TO MONITOR.
--- NOTE | 2021-04-17 10:50 | NUR ---
PATIENT MOVED TO ICU ROOM 6 AT THIS TIME. PATIENT TOLERATED WELL.
--- NOTE | 2021-04-17 11:03 | NUR ---
DR LYN AT BEDSIDE TO PLACE CENTRAL LINE
--- NOTE | 2021-04-17 12:00 | NUR ---
RADIOLOGY AT BEDSIDE FOR PORTABLE CXR
--- NOTE | 2021-04-17 13:05 | NUR ---
PATIENT TO CT SCAN VIA BED ON PORTABLE VENT AND PORTABLE MONITOR FOR STAT CHEST CT SCAN.
--- NOTE | 2021-04-17 13:45 | NUR ---
PATIENT RETURNED TO ROOM 6 VIA BED. PT TOLERATED TRANSFER WELL.
--- NOTE | 2021-04-17 16:00 | NUR ---
PATIENT RESTING IN BED INTUBATED AND SEDATED AT THIS TIME. VSS ON MONITOR. WILL CONINUE TO MONITOR.
--- NOTE | 2021-04-17 18:00 | NUR ---
PATIENT RESTING IN BED INTUBATED AND SEDATED. VSS ON MONITOR. NO DISTRESS NOTED. WILL CONTINUE TO MONITOR.
--- NOTE | 2021-04-17 19:30 | NUR ---
vent cont assisted by pt. monitoring coordinator shows sinus rhythm hr 94. ivf cont per lt tlc. picc line in place. florez cath in place. urine cloudy yellow. bilat scds, wrist restraints, fall air/contact precautions cont. pt is VERY obese. requires total care for all needs.
--- NOTE | 2021-04-17 22:00 | NUR ---
vent cont assisted by pt. bus monitor shows sinus rhythm hr 90.
[2021-04-18] VITALS (31 sets, daily range): BP systolic 85–143; BP diastolic 50–71
--- NOTE | 2021-04-18 00:01 | NUR ---
vent cont assisted by pt. lt chest wall appears larger.
--- NOTE | 2021-04-18 02:00 | NUR ---
vent cont assisted by pt. hardware engineering manager shows sinus rhythm hr 104.
--- NOTE | 2021-04-18 04:15 | NUR ---
blood drawn & sent to lab.
--- NOTE | 2021-04-18 05:00 | NUR ---
xray here. pcxr obtained. rose called this manual writer. informed of increased size od lt side of chest.
--- NOTE | 2021-04-18 05:30 | NUR ---
rt here. abgs drawn.
[2021-04-18 05:54] LABS: HEMOGLOBIN 13.5 g/dl (12.0-16.0); IMMATURE GRANULOCYTES 0.5 % (0.0-5.0); MEAN CELL VOLUME 91.5 fL CALC (80.0-100.0); MEAN CORPUSCULAR HGB 30.1 pG CALC (26.0-32.0); MEAN CORPUSCULAR HGB CONC 32.9 g/dL CAL (32.0-36.0); NEUT# 15.52 thou/uL (2.00-7.15); RED BLOOD COUNT 4.48 mill/uL (4.20-5.60); RED CELL DISTRI WIDTH 13.9 % (11.5-15.5)
[2021-04-18 06:14] LABS: ALKALINE PHOSPHATASE 67 u/l (38-126); BILIRUBIN, TOTAL 0.4 mg/dL (0.0-1.4); BUN 13 mg/dL (7-17); BUN/CREATININE RATIO 20 (12-20 (CALC)); CHLORIDE 105 mmol/l (95-108); CREATININE 0.7 mg/dL (0.5-1.0); GFR > 60 ML/MIN (>=60 (CALC)); GFR FOR AFR.AMER. > 60 ML/MIN (>=60 (CALC)); POTASSIUM 4.3 mmol/l (3.5-5.1); SGOT/AST 17 u/l (14-36); SODIUM 138 mmol/l (137-146); TOTAL PROTEIN 5.5 g/dL (6.3-8.2)
[2021-04-18 06:19] LABS: ANION GAP 17 (6-22 (CALC)); CARBON DIOXIDE 20 mmol/l (22-30)
--- NOTE | 2021-04-18 09:11 | NUR ---
PT SEEN VENTED, SEDATED, RESTING IN THE BED IN NO ACUTE DISTRESS. PT WITH CLEAR LUNGS, DECREASED PER GIRTH, 100% FIO2. HENDERSON IN PLACE. OG IN PLACE. SCDs IN PLACE. LEFT SIDED SUBCUTANEOUS EMPHYSEMA NOTED TO LEFT SHOULDER AND NECK AREA.
--- NOTE | 2021-04-18 13:20 | NUR ---
PT CONTINUES SEDATED AND VENTILATED. PULMOCARE FEEDING INFUSING WITHOUT DIFFICULTY. PT TURNED SIDE TO SIDE BEST POSSIBLE.
--- NOTE | 2021-04-18 14:28 | NUR ---
PT RECEIVING REMDESIVIR AT THIS TIME. PT REMAINS STABLE ON VENT, NO SIGNIFICANT CHANGE IN STATUS.
--- NOTE | 2021-04-18 18:34 | NUR ---
PT NOW ON AIR MATTRESS, GROUP EFFORT NEEDED TO ACCOMPLISH. PT IN NO DISTRESS SHE RESTS IN THE BED, NO SIGNIFICANT CHANGE IN STATUS. LEVOPHED AND SEDATIVES TITRATED DOWN POSSIBLE.
--- NOTE | 2021-04-18 19:50 | NUR ---
pt intubated and sedated; no apparent distress noted; assessment completed at this time; pt intubated; no s/sx of pain/ facial grimaces noted; no n/v noted; resp even and unlabored; lungs clear/ diminished; skin color wnl; vent intact and maintained with settings of AC mode, TV 400, rate 30, FiO2 100%; 8.0 Fr ETT tube secured at the 20cm lip line; hr reg; strong pulses; no edema noted; st on monitor; scds bilat intact; abd soft/ distended with bs hypoactive; no bm noted per clinical writer; og tube placement confirmed via air bolus; tube feed remains on hold at this time; florez to gravity draining clear yellow urine; cath strap intact; dual lumen picc line intact to [place] with versed gtt infusing at 6mg/hr; no redness or edema noted at site; TLC patent to left subclavian with ivf/ propofol gtt at 60 mcg/kg/min; no redness or edema noted at site; pt orally suctioned for what appears to be tube feed; pt ett suctioned; repositioned; air mattress; will continue to monitor
--- NOTE | 2021-04-18 20:51 | NUR ---
Dr Eaton informed of accucheck of 451
--- NOTE | 2021-04-18 21:08 | NUR ---
pm meds administed; all lumes to left subclav flushed and patent; brisk blood return noted; dual picc flushed with blood return noted as well; will continue to monitor
--- NOTE | 2021-04-18 21:34 | NUR ---
received call from David Olson, spouse; passcode verified; update provided; spouse request items from pt room; commercial real estate underwriter spoke with ground crew supervisor; pt listed as next of kin; items to be released; will continue to monitor
--- NOTE | 2021-04-18 22:00 | NUR ---
intubated and sedated; repositioned; versed and propofol gtt maintained; florez to gravity; st on monitor; will continue to monitor
--- NOTE | 2021-04-18 22:20 | NUR ---
pt belongings (cell phone, supervisor fitting, tablet and wallet) released to spouse;
[2021-04-19] VITALS (32 sets, daily range): BP systolic 83–127; BP diastolic 45–88
--- NOTE | 2021-04-19 | NUR ---
intubated and sedated; no apparent distress noted; vent intact and maintained; iv intact and patent; propofol, versed and levophed gtt continue; florez to gravity; repositioned; oral care; will continue to monitor
--- NOTE | 2021-04-19 02:15 | NUR ---
vent intact and maintained; sr on monitor; florez to gravity; iv intact and patent; will continue to monitor
--- NOTE | 2021-04-19 03:17 | NUR ---
complete bed bath and linen change; repositioned to left side; will continue to monitor
--- NOTE | 2021-04-19 04:10 | NUR ---
intubated and sedated; no apparent distress noted; vent intact and maintained; iv patent; propofol and versed continued; levophed continued; florez to gravity; sr on monitor; will continue to monitor
[2021-04-19 05:35] LABS: HEMATOCRIT 40.3 % (37.0-47.0); HEMOGLOBIN 13.4 g/dl (12.0-16.0); IMMATURE GRANULOCYTES 0.6 % (0.0-5.0); MEAN CORPUSCULAR HGB 29.9 pG CALC (26.0-32.0); MEAN CORPUSCULAR HGB CONC 33.3 g/dL CAL (32.0-36.0); NEUT# 17.05 thou/uL (2.00-7.15); RED BLOOD COUNT 4.48 mill/uL (4.20-5.60); RED CELL DISTRI WIDTH 13.8 % (11.5-15.5)
--- NOTE | 2021-04-19 05:53 | NUR ---
pt intubated and sedated; vent intact and maintained; florez to gravity; sr on monitor; propofol, levophed and versed continued; air mattress; repositioned throughout the night; increaed facial/ left neck swelling
[2021-04-19 05:54] LABS: ALBUMIN 2.6 g/dL (3.2-5.0); ALKALINE PHOSPHATASE 63 u/l (38-126); BILIRUBIN, TOTAL 0.4 mg/dL (0.0-1.4); BUN 15 mg/dL (7-17); BUN/CREATININE RATIO 29 (12-20 (CALC)); C-REACTIVE PROTEIN 7.2 mg/dL (0-0.9); CHLORIDE 104 mmol/l (95-108); CREATININE 0.5 mg/dL (0.5-1.0); GFR > 60 ML/MIN (>=60 (CALC)); GFR FOR AFR.AMER. > 60 ML/MIN (>=60 (CALC)); SODIUM 138 mmol/l (137-146)
[2021-04-19 05:57] LABS: ANION GAP 12 (6-22 (CALC)); CARBON DIOXIDE 25 mmol/l (22-30); POTASSIUM 3.3 mmol/l (3.5-5.1); SGOT/AST 38 u/l (14-36)
--- NOTE | 2021-04-19 07:37 | NUR ---
PT SEEN AT REST IN THE BED, SEDATED AND VENTED. LUNGS CLEAR, FIO2 100% WITH SATS IN THE LOW 90s. SEDATION CONTINUES, PT NONRESPONSIVE. TUBE FEEDINGS ON HOLD PER WHAT APPEARED TO BE PULMOCARE IN PT'S MOUTH WITH NO RESIDUAL IN STOMACH. RADHAs. SANTIAGO.
--- NOTE | 2021-04-19 08:35 | NUR ---
CHANGED HME, AND SXN PT FOR SM AMT THICK WHITE SECRETIONS. ETT PATENT AND SECURE. NO CHANGES IN VENT PARAMTERES AT THIS TIME. EIGHT SECTION BLOWER TO MONITOR.
--- NOTE | 2021-04-19 10:14 | NUR ---
CHANGED HME. NO CHANGES TO VENT PARAMTERS AT THIS TIME. OIL WELL FISHING TOOL OPERATOR TO MONITOR. -
--- NOTE | 2021-04-19 10:29 | NUR ---
PT REMAINS BEFORE. SUBCUTANEOUS EMPHYSEMA NOTED TO BOTH SIDES OF NECK AND AROUND LEFT SUBCLAVIAN TRIPLE LUMEN SITE. PT DOES NOT MOVE OR ATTEMPT TO SQUEEZE HANDS WHEN ASKED.
--- NOTE | 2021-04-19 13:09 | NUR ---
PT REMAINS BEFORE, NO PURPOSEFUL MOVEMENTS PER SEDATION. SATS REMAIN IN THE LOW TO MID 90s. SPECIALTY MATTRESS PROVIDES SKIN PROTECTION PER ROTATION SCHEDULE.
--- NOTE | 2021-04-19 18:14 | NUR ---
PT'S MOUTH CLEANED WITH TOOTHSPONGE, MOISTURIZER APPLIED TO LIPS. PT REMAINS STABLE BEFORE, SATS SEEN IN THE LOWER 90s.
--- NOTE | 2021-04-19 19:20 | NUR ---
PATIENT LAY WITH HOB 30 DEGREES. IS ON MECHANICAL VENTILATION, VENT SETTINGS: RATE 30, PEEP 10, TIDAL VOLUME 400, FIO2 100%, AC, 21 CM AT THE LIP, SIZE 7.5. HAS AN OG TUBE, SET TO LIS, AND DRAINAGE IS DARK BROWN. HAS A LEFT SUBCLAVIAN TRIPLE LUMEN, ALL LUMENS FLUSH, BLUE LUMEN DOES NOT RETURN BLOOD. ALSO HAS A JOSSY ARM DOUBLE LUMEN PICC, FLUSHES AND RETURNS BLOOD. HAS VERSED DRIP, LEVOPHED DRIP, AND PROPOFOL DRIP, NS IV FLUIDS INFUSING PROPERLY, DRIPS WILL BE TITRATED PER PROTOCOL. NURSE ASSESSMENT PERFORMED. HAS A HENDERSON CTAHTEER, DRAINS YELLOW/CLEAR URINE. IS ON AN AIR MATRESS/INTACT. SCD'S TAKEN OFF FOR ASSESSMENT, PLACED BACK ON. SR ON TELEMETRY, HR 90'S, BP WNL, SPO2 88%-91%. MOUTH CARE PROVIDED, NO PHLEGM OR SALIVA FROM ET OR MOUTH. GENERLAIZED EDEMA TO LUE, HAS BP CUFF ON THAT ARM. WILL CONTINUE TO MONITOR.
--- NOTE | 2021-04-19 19:42 | NUR ---
NOTIFIED RT WADNER PATIENT'S SPO2 88%-90%.
--- NOTE | 2021-04-19 20:06 | NUR ---
RT WYMAN NOTIFIED ME HE CHANGED THE PEEP FROM 10 TO 12 DUE TO SPO2 LOW, 88%-90%.
--- NOTE | 2021-04-19 22:34 | NUR ---
PATIENT'S CALLED HERE FOR UPDATES RAINER, UPDATES PROVIDED.
--- NOTE | 2021-04-19 23:52 | NUR ---
PATIENT WAS PULLED UP AND PLACED TO THE LEFT SIDE, ALSO LEVOPHED DRIP WAS TITRATED PER PROTOCOL, WILL CONTINUE TO MONITOR.
[2021-04-20] VITALS (16 sets, daily range): BP systolic 100–143; BP diastolic 50–65
--- NOTE | 2021-04-20 00:10 | NUR ---
DRAINAGE FROM WHAT LOOKS TO BE FROM OG COMING OUT OG PATIENT'S SIDE OF THE MOUTH. NEW OG TUBE PLACED, VERIFID VIA AUSCULTATION. PROPOFOL DRIP TITARTED DOWN.
--- NOTE | 2021-04-20 00:16 | NUR ---
ANTIBIOTIC INFUSING NOW. BEDTIME MEDICATIONS PROVIDED. SPO2 BETWEEN 90%-92%.
--- NOTE | 2021-04-20 00:52 | NUR ---
RT IN ROOM TO PROVIDED LAVAGE.
--- NOTE | 2021-04-20 03:00 | NUR ---
PATIENT WAS WASHED UP, LINENS CHANGED. PULLED UP. SPO2 DID DROP TO 83% WHEN REPOSITIONING AND WASHING UP. SLOWLY RECOVERS TO HIGH 80'S. WILL CONTINUE TO MONITOR.
--- NOTE | 2021-04-20 05:00 | NUR ---
BLOOD DRAWN FROM LEFT SUBCLAVIAN FOR AM LABS.
[2021-04-20 05:34] LABS: HEMATOCRIT 39.7 % (37.0-47.0); HEMOGLOBIN 13.1 g/dl (12.0-16.0); MEAN CELL VOLUME 89.8 fL CALC (80.0-100.0); MEAN CORPUSCULAR HGB 29.6 pG CALC (26.0-32.0); RED BLOOD COUNT 4.42 mill/uL (4.20-5.60); RED CELL DISTRI WIDTH 13.9 % (11.5-15.5)
--- NOTE | 2021-04-20 05:40 | NUR ---
RT NOTIFIES ME PEEP INCREASED TO 15, SPO2 HAS BEEN ISABEL 86%.
[2021-04-20 05:53] LABS: ANION GAP 11 (6-22 (CALC)); BUN 13 mg/dL (7-17); BUN/CREATININE RATIO 27 (12-20 (CALC)); CARBON DIOXIDE 27 mmol/l (22-30); CHLORIDE 104 mmol/l (95-108); CREATININE 0.5 mg/dL (0.5-1.0); GFR > 60 ML/MIN (>=60 (CALC)); GFR FOR AFR.AMER. > 60 ML/MIN (>=60 (CALC)); POTASSIUM 3.2 mmol/l (3.5-5.1); SODIUM 139 mmol/l (137-146)
--- NOTE | 2021-04-20 05:55 | NUR ---
INSULIN PROVIDED. SYNTHROID PROVIDED THROUGH OG TUBE, LIS ON HOLD. PATIENT'S SPO2 89%.
--- NOTE | 2021-04-20 07:15 | NUR ---
ASSUMED CARE OF PT.GTTS INFUSING PER EMAR. SHIFT ASSESSMENT PREFORMED.
--- NOTE | 2021-04-20 08:07 | NUR ---
NO CHANGES AT THIS TIME. AWARE. DIETITIAN RESEARCH TO MONITOR.
--- NOTE | 2021-04-20 08:25 | NUR ---
NO CHANGES AT THIS TIME. AWARE. CLOUD ADMINISTRATOR TO MONITOR.
--- NOTE | 2021-04-20 09:49 | NUR ---
CALLED , DESHAUN AND UPDATED HIM ON PT STATUS
--- NOTE | 2021-04-20 10:02 | NUR ---
NO CHANGES AT HTIS TIME. AWARE. MBA INTERNSHIP TO MONITOR.
--- NOTE | 2021-04-20 10:46 | NUR ---
PT MOTHER CALLED, UPDATED ON PT CONDITION
--- NOTE | 2021-04-20 11:12 | NUR ---
UPDATED FATHER ON PT CONDITION
--- NOTE | 2021-04-20 13:56 | NUR ---
FAMILY ARRIVED TO ICU WAITNG ROOM TO SPEAK WITH MD AND MAKE DESCIONS ON END OF LIFE CARE
--- NOTE | 2021-04-20 14:20 | NUR ---
NOTIFIED MD OF FAMILY DECISION TO MAKE PT A DNR , AND WITHDRAW CARE
--- NOTE | 2021-04-20 15:15 | NUR ---
PT TERMINALY EXTUBATED AND PLACED ON COMFORT CARE, OG, ET TUBE, AND ALL DRIPS D/JONATHAN PER FAMILY WISHES
--- NOTE | 2021-04-20 15:37 | NUR ---
TIME OF [id number]
--- NOTE | 2021-04-20 16:27 | NUR ---
SPOUSE AND MOTHER NOTIFIED OF PT , [employer] NOTIFIED, AND [facility] CALLED FOR SUPERVISOR [employer]
--- NOTE | 2021-04-21 14:47 | NUR ---
CALLED PRINCESS REGARDING CHARTER BOAT OPERATOR OF AIRMATRESS. SPOKE TO SONIA WAS INFORMED MARIAH GILESTERRA [employer]OTTA ROOFER HELPER SPOKE TO SOMEONE LAST NIGHT REGARDING MATRESS WAS GIVEN CONFIRMATION NUMBER [id number].
== END 2021-04-20 15:37 | disposition expired | DRG 207 ==
LOC: ED 12:38 → ED-I 17:17 → ED 17:31 → ED-I 17:32 → MS2 04-13 15:30 → ED-I 04-13 15:31 → MS2 04-13 15:31 → ED-I 04-13 15:31 → MS2 04-13 20:54 → ICU 04-14 18:38
PROVIDERS: Family Medicine; Nurse Practitioner; ADMIT Hospitalist; ATTEND Hospitalist
PROC: XW043E5 Introduction of Remdesivir Anti-infective into Central Vein, Percutaneous Approach, New Technology Group 5 (ICD-10-PCS; principal; 2021-04-13)
PROC: 02HV33Z Insertion of Infusion Device into Superior Vena Cava, Percutaneous Approach (ICD-10-PCS; 2021-04-13)
PROC: B518ZZA Fluoroscopy of Superior Vena Cava, Guidance (ICD-10-PCS; 2021-04-13)
PROC: 0T9B70Z Drainage of Bladder with Drainage Device, Via Natural or Artificial Opening (ICD-10-PCS; 2021-04-14)
PROC: 5A1955Z Respiratory Ventilation, Greater than 96 Consecutive Hours (ICD-10-PCS; 2021-04-16)
PROC: 0BH17EZ Insertion of Endotracheal Airway into Trachea, Via Natural or Artificial Opening (ICD-10-PCS; 2021-04-16)
PROC: 02HV33Z Insertion of Infusion Device into Superior Vena Cava, Percutaneous Approach (ICD-10-PCS; 2021-04-19)
DX: U07.1 COVID-19 (principal); J12.82 Pneumonia due to coronavirus disease 2019; J96.01 Acute respiratory failure with hypoxia; Z68.42 Body mass index [BMI] 45.0-49.9, adult; T81.82XA Emphysema (subcutaneous) resulting from a procedure, initial encounter; I10 Essential (primary) hypertension; E11.9 Type 2 diabetes mellitus without complications; E03.9 Hypothyroidism, unspecified; K76.0 Fatty (change of) liver, not elsewhere classified; E66.01 Morbid (severe) obesity due to excess calories; E78.5 Hyperlipidemia, unspecified; M79.7 Fibromyalgia; Y84.8 Other medical procedures as the cause of abnormal reaction of the patient, or of later complication, without mention of misadventure at the time of the procedure; Z79.84 Long term (current) use of oral hypoglycemic drugs; Z66 Do not resuscitate
CPT/HCPCS: J1650; J2060; J2250; S0164